=== PATIENT | female | born 1970 | race Hispanic/Latino ===

== ENCOUNTER 2018-07-26 11:52 | Observation (INO) | payer BC ==
[~2018-07-26] VITALS: Ht 157.5 cm; Wt 85.5 kg
[2018-07-26 12:26] LABS: BASOPHILS % (AUTO) 0.2 % (0.0-5.0); EOSINOPHILS % (AUTO) 0.1 % (0.0-8.0); HEMATOCRIT 36.5 % (36-48); MEAN CORPUSCULAR HEMOGLOBIN 27.3 pg (27.0-33.0); MEAN CORPUSCULAR HGB CONC 33.8 g/dL (32.0-36.0); MEAN CORPUSCULAR VOLUME 80.7 fL (79-99); MONOCYTES % (AUTO) 12.3 % (3.0-13.0); NEUTROPHILS % (AUTO) 82.4 % (40.0-77.0); PLATELET COUNT (AUTO) 188 K/uL (130-400); RED BLOOD CELL COUNT(AUTO) 4.52 MIL/uL (4.00-5.50); RED CELL DISTRIBUTION WIDTH 14.4 % (11.0-15.5); WHITE BLOOD COUNT (AUTO) 18.1 K/uL (4.8-10.8)
[2018-07-26] MEDS ORDERED: CEFTRIAXONE SODIUM 1 GM ONE (12:37)
[2018-07-26] MEDS ORDERED: SODIUM CHLORIDE 0.9% 1000ML 1,000 ML IV ONE ×3 (12:37→15:28)
[2018-07-26 12:44] LABS: PARTIAL THROMBOPLASTIN TIME 39.2 SEC (26.3-35.5); PROTHROMBIN TIME 10.5 SEC (9.6-11.6)
[2018-07-26] MEDS ORDERED: IPRATROPIUM/ALBUTEROL SULFATE 3 ML SOLUTION IH ONE (12:44)
[2018-07-26 12:50] LABS: BILIRUBIN,TOTAL 1.6 mg/dL (0.2-1.0); CREATININE 1.5 mg/dL (0.5-1.5); POTASSIUM 3.2 mmol/L (3.5-5.1); TOTAL PROTEIN, SERUM 9.6 g/dL (6.0-8.3)
[2018-07-26 14:25] LABS: APPEARANCE,URINE CLEAR (CLEAR); BILIRUBIN,URINE MODERATE (NEGATIVE); COLOR,URINE YELLOW (YELLOW); GLUCOSE, URINE (UA) NEGATIVE (NEGATIVE); KETONES,URINE 15 mg/dL (NEGATIVE); LEUKOCYTE ESTERASE ,URINE MODERATE (NEGATIVE); NITRATE,URINE POSITIVE (NEGATIVE); OCCULT BLOOD,URINE MODERATE (NEGATIVE); PROTEIN,URINE 100 mg/dL (NEGATIVE); UROBILINOGEN,URINE >=8.0 mg/dL (0.2-1.0)
[2018-07-26 14:31] LABS: BACTERIA,URINE Many /HPF (None Seen); MUCUS,URINE Rare LPF (None Seen); SQUAMOUS EPITHELIAL CELL,UR Rare /HPF (0-2); WBC,URINE 51-100 /HPF (0-1)
[2018-07-26 18:00] VITALS: BP 117/69
[2018-07-26 20:00] VITALS: BP 112/67
[2018-07-27] VITALS: BP 113/67
[2018-07-27] MEDS: SODIUM CHLORIDE 0.9% 1000ML 1,000 ML IV SCH ×3 (03:28→16:30)
[2018-07-27 04:00] VITALS: BP 109/63
[2018-07-27 07:30] VITALS: BP 114/62
--- NOTE | 2018-07-27 08:00 | NUR ---
Reports only one BM yesterday Addendum: 07/27/18 at 1401 by JOEL MEADE RN RN Amended: Links added.
[2018-07-27 11:00] VITALS: BP 109/68
[2018-07-27] MEDS ORDERED: CEFTRIAXONE SODIUM 1 GM IVP SCH (12:00)
[2018-07-27 16:00] VITALS: BP 103/71
--- NOTE | 2018-07-27 18:32 | NUR ---
OBSERVATION PT- ORDER FOR DC NO CONCERNS VOICED TO CM FORM PT MAIL ORDER CLERK, NO TRIGGERS DETAILED IA DEFERRED AT THIS TIME
== END 2018-07-27 19:28 | disposition home or self-care (01) ==
LOC: EDH 11:52 → EDHIP 15:20 → 3BH 18:19
PROVIDERS: ADMIT Internal Medicine Critical Care Medicine; ATTEND Internal Medicine Critical Care Medicine
DX: N39.0 Urinary tract infection, site not specified (principal); E03.9 Hypothyroidism, unspecified; E11.9 Type 2 diabetes mellitus without complications; E78.5 Hyperlipidemia, unspecified; E86.0 Dehydration; Z98.51 Tubal ligation status; Z79.899 Other long term (current) drug therapy; Z79.01 Long term (current) use of anticoagulants
CPT/HCPCS: 36415; 71045; 80053; 81001; 82550; 83605; 84484; 85025; 85610; 85730; 87040 ×2; 87088; 87804 ×2; 93005; 94640; 96374; 99283; G0378 ×28; J0696 ×2; J7030 ×3

== ENCOUNTER → 2022-10-03 | Outpatient (CLI) | payer BC ==
[~2022-10-03] MED LIST: REGADENOSON 0.4 MG/5 ML PF SYG IVP ONE
== END | disposition home or self-care (01) ==
LOC: SHCH 08:08
PROVIDERS: ATTEND Internal Medicine Cardiovascular Disease
DX: R06.02 Shortness of breath (principal); R05.9 Cough, unspecified; R06.09 Other forms of dyspnea
CPT/HCPCS: 78452; 96374; 93017; J2785; A9500 ×2

== ENCOUNTER → 2022-11-03 | Outpatient (CLI) | payer BC | END | disposition home or self-care (01) | LOC: SHCH 15:13 | PROVIDERS: ATTEND Internal Medicine Cardiovascular Disease | DX: R06.02 Shortness of breath (principal); E78.5 Hyperlipidemia, unspecified; I10 Essential (primary) hypertension | CPT/HCPCS: 93306 ==